=== PATIENT | male | born 2000 | race Caucasian/White ===

== ENCOUNTER 2025-02-10 22:18 | Emergency (ER) | payer MEDICAID, SELFPAY ==
[2025-02-10 22:19] VITALS: BMI 22.9
[2025-02-10 22:51] VITALS: BP 168/98; PULSE 100; RESP 20; TEMP 37.1; O2SAT 98
--- NOTE | 2025-02-11 00:30 | XR_ITS ---
Examination: Hand, left 3 views Technique: Hand AP, oblique, lateral 3 views Date and time of exam: February 11, 2025 at 0032 hrs. Indications: Onset digit pain today Findings: No acute fracture. No dislocation. No opaque foreign body Impression: No opaque foreign body
--- NOTE | 2025-02-11 00:35 | PD.EDHAND ---
Upper Extremity Injury RME/HPI General Chief Complaint: Hand/Wrist Problems Stated Complaint: LEFT HAND INJURY Time Seen by Provider: 02/11/25 00:20 Arrival date/time: 02/10/25 22:18 Limitations: no limitations RME / HPI RME / HPI narrative: 24-year-old male presents with left hand, fifth digit pain x 2 hours. He reports that injury occurred at work. He reports that he was removing food from the freezer when he slid and jammed his hand into the doorway. Patient reports that his knuckle appeared displaced but he was able to reduce it himself. Patient endorses some tingling to his left fifth digit. Denies numbness, cold extremities, additional injuries. Pt right hand dominant. MD complaint: injury to: hand and finger Related Data Allergies Allergy/AdvReac Type Severity Reaction Status Date / Time No Known Allergies Allergy Verified 02/10/25 22:19 Review of Systems Constitutional Constitutional: Denies frequent falls Eyes Eyes: Denies change in vision ENT Ears, Nose, Mouth, and Throat: Denies disequilibrium and Denies neck pain Musculoskeletal Musculoskeletal: Reports arthralgias (left hand 5th digit ), Denies back pain, Reports joint swelling (left hand 5th digit ), Denies neck pain, Denies numbness and Denies radiating pain into limb Integumentary/Breasts Skin/Breast: Denies lesions and Denies wounds Neurologic Neurologic: Denies disequilibrium, Denies frequent falls and Denies numbness Past Medical History Social History SMOKING STATUS: Never smoker ED Exam General Limitations: Present no limitations General appearance: Present alert and in no apparent distress Head Head exam: Present atraumatic and normocephalic Eye Eye exam: Present normal appearance and EOMI Neck Neck exam: Present normal inspection and full ROM Chest Chest inspection: Present normal inspection and symmetric chest wall rise Respiratory Respiratory exam: Absent respiratory distress Cardiovascular Cardiovascular exam: Present regular rate Abdominal Exam Abdominal exam: Present soft; Absent distention Expanded Upper Extremity Exam Arm exam: Present normal inspection and full ROM; Absent tenderness Elbow exam: Present normal inspection and full ROM; Absent tenderness Forearm/Wrist exam: Present normal inspection and full ROM; Absent tenderness Hand exam: Present tenderness (left 5th digit at proximal metacarpal joint. ) and swelling; Absent ecchymosis, deformity, nail avulsion or subungual hematoma Hand L/R back image:  1. Neuromotor exam: Normal wrist extension and thumb opposition Neurosensory exam: Normal radial nerve Vascular exam: Normal capillary refill and radial pulse (intact bilaterally. ) Back Exam Back exam: Present normal inspection and full ROM; Absent paraspinal tenderness or vertebral tenderness Neurological Exam Neurological exam: Present alert and normal gait Psychiatric Psychiatric exam: Present normal affect Skin Skin exam: Present warm, dry and intact Course Quality Measures none Orders Category Date Time Status Miscellaneous Nursing Order NOW Care 02/11/25 02:37 Completed XR hand comp LT min 3V Stat Exams 02/11/25 00:30 Completed Acetaminophen Tab [Tylenol Tab] Med 02/11/25 02:33 Discontinued 650 mg PO X1 ONE Vital Signs Vital signs: Vital Signs Temperature 98.7 F 02/10/25 22:51 Pulse Rate 100 02/10/25 22:51 Respiratory Rate 20 02/10/25 22:51 Blood Pressure 168/98 H 02/10/25 22:51 Pulse Oximetry (%) 98 02/10/25 22:51 Pulse ox 98% on room air, within normal limits. Extremity Injury MDM Narrative MDM Narrative:: 24-year-old male presented for evaluation of injury that occurred at work to his left hand fifth digit. Vital signs stable. Tenderness to the proximal metacarpal joint of the left hand fifth digit. No ecchymosis or gross deformity. X-ray negative for acute fracture or dislocation. No focal neurodeficits. Patient's pain was improved in the department following Tylenol administration. Ultimately patient was discharged home with plan to follow-up with primary care for further evaluation and treatment within the week. Return precautions were provided. Patient data External records reviewed:: [facility] previous records Clinical information provided by:: patient Social determinants that could affect healthcare access:: none Patient has the following chronic illnesses:: None reported. How is presenting disease/condition affected by chronic disease/condition?: no chronic disease Evaluation data The following diagnostics were reviewed and interpreted by me:: radiology exam(s) Lab and/or radiology exams considered but not ordered:: Considered not ordered. Interpretation Summary: Left hand x-ray with no acute fracture or dislocation. Medications / Prescriptions Medications or Prescriptions considered but not ordered:: Rx given. Medication administrations:: Medication Administration History Discontinued Medications Acetaminophen (Acetaminophen 325 Mg Tablet) 650 mg PO X1 ONE Stop: 02/11/25 02:34 Last Admin: 02/11/25 02:38 Dose: 650 mg Documented By: PINOR Rx given. Consultations Consultation(s) initiated? (list below): No Diagnosis Upper Extremity Injury Differential Diagnosis: sprain and strain of wrist, finger sprain, dislocation of finger and fracture of hand Most likely diagnosis given after review of the tests above:: Finger sprain. Admission Indicated Admission indicated?: not indicated Admission Request Was there a request for admission?: No Disposition Plan Disposition Plan: Discharge Discharge Attestation Discharge Attestation: The patient and all family members were given an opportunity to ask questions and understood the discharge instructions. Discharge instructions specifically effects, indications for sooner follow up or return to the emergency department, and the expected course of current diagnosis. Patient condition: Stable Discharge Plan Plan Patient Disposition: HOME (Self Care) Disposition Comment: stable Prescriptions/Referrals Referrals: No Primary/Family,Physician [Primary Care Provider] - In 1 week Problem List Clinical Impression: Finger sprain Patient/Caregiver Discharge Instructions Other Activity Instructions:: Treat pain and swelling with Tylenol or Motrin as needed. Follow-up with primary care for further evaluation and treatment. Consider igor taping for the next 3 to 4 days. Return to ED if symptoms worsen or change. Education Materials: ED Finger Sprain Print Language: [place] Stand Alone Forms: Erinn Award Info., Patient Portal Info Letter FIFI/PATTI Supervising Physician FIFI/PATTI Supervising Physician: Dr. [email or web address]
[2025-02-11] MEDS: ACETAMINOPHEN 325 MG TABLET 650 MG PO (02:38)
== END 2025-02-11 02:42 | disposition home or self-care (01) ==
PROVIDERS: Emergency Provider Emergency Medicine
DX: S63.617A Unspecified sprain of left little finger, initial encounter (principal); X58.XXXA Exposure to other specified factors, initial encounter
CPT/HCPCS: 73130; 99283; A9270